=== PATIENT | male | born 1940 | race Caucasian/White ===

== ENCOUNTER 2023-10-06 19:04 | Emergency (ER) | payer MEDICARE, OTHER, SELFPAY ==
[2023-10-06] VITALS (25 sets, daily range): BP systolic 124–143; BP diastolic 64–94; PULSE 68–93; RESP 18; TEMP 36.3; O2SAT 94–100; BMI 21.8
--- NOTE | 2023-10-06 19:16 | CRLHL7_ITS ---
For Patients: As a result of the Century Cures Act, medical imaging exams and procedure reports are released immediately into your electronic medical record. You may view this report before your referring provider. If you have questions, please contact your health care provider. INDICATION: Fall, trauma. TECHNIQUE: CT head without contrast. COMPARISON: None. FINDINGS: CSF spaces: Within normal limits for age. Brain parenchyma and extra-axial spaces: The roque-white differentiation is normal. No sign of mass, hemorrhage, or midline shift. No extra-axial fluid collection. Skull base and calvarium: Right parietal scalp hematoma. The visualized paranasal sinuses and mastoid air cells demonstrate no acute or significant findings. The visualized orbits are grossly unremarkable. No skull fractures. IMPRESSION: Right parietal scalp hematoma. No acute intracranial abnormality. Please note that all CT scans at this facility use dose modulation, iterative reconstruction, and/or weight-based dosing when appropriate to reduce radiation dose to as low as reasonably achievable. Dictated by Neymar Muñoz MD @ 10/06/2023 9:10:18 PM (Electronically Signed)
--- NOTE | 2023-10-06 19:20 | ED_ITS ---
HPI - General Adult General Time Seen by Provider: 19:20 Date Seen: 10/06/23 Chief complaint: Fall/Minor Trauma Stated complaint: fall, lac on head Time Seen by Provider: 10/06/23 19:06 Source: patient and family Mode of arrival: EMS Limitations: no limitations History of Present Illness HPI narrative: Kendrick is an 83-year-old male past medical history includes CVA, hypertension not on any blood thinners presents emerged department via EMS after a syncopal episode and head injury. Patient states he was doing well all day, he went to [employer] this evening, he sings in the choir, he was sitting and standing for about 30 minutes, he was about to start his 2nd set of singing when he did remember what happened. He woke up with EMS around. Per family and people at [employer] no seizure-like activity. Patient states since he has been on lisinopril when he gets up to stand he sometimes gets lightheaded, never had a syncopal episode, patient did have dinner this evening, he has been eating and drinking normally, denies any head pain or neck pain, no visual disturbance, no diaphoresis, chest pain or shortness of breath, he has not had any nausea vomiting or abdominal pain. No history of any CAD. Patient has no pain at this time. Related Data Allergies Allergy/AdvReac Type Severity Reaction Status Date / Time Penicillins AdvReac Severe Anaphylaxis Verified 10/06/23 19:10 Review of Systems Status of ROS: Reports: 10 or more systems reviewed and unremarkable except as noted in History and below [facility] Medical History Health care directive on file ?Z78.9 - Other specified health status (ICD-10) Social History Smoking Status: Never smoker Do you use any of these nicotine containing products: None Non-prescribed substance use: denies use Exam Narrative: Exam Narrative: General: No obvious distress laying comfortably, HEENT: Pupils equal round reactive to light, extraocular muscles intact, 3 cm posterior right parietal horizontal laceration, surrounding ecchymosis mild swelling. Tympanic membranes within normal limits bilaterally Neck: Nontender to palpation cervical spine, full range of motion. Lungs: Clear to auscultation bilaterally Heart: Normal Sinus rhythm S1-S2 Abdomen: Soft, nontender, bowel sounds present Muscle skeletal: Back is atraumatic, nontender the thoracic to lumbar spine, internal external rotation hips normal bilaterally Is +5 strength upper lower extremities Neuro: He is alert awake and oriented x3 Const: Vital Signs, click to edit/add: Vital Signs - 24 hr 10/06/23 19:06 10/06/23 19:09 10/06/23 19:15 Temperature 97.3 F L Pulse Rate 69 71 Pulse Rate [orthos tatic lying] Pulse Rate [orthos tatic sitting] Pulse Rate [orthos tatic standing] Respiratory Rate 18 Blood Pressure Blood Pressure [Ri ght Upper Arm] 133/94 H Blood Pressure [or thostatic lying] Blood Pressure [or thostatic sitting] Blood Pressure [or thostatic standing ] Pulse Oximetry 99 98 94 Oxygen Delivery Me thod Room Air 10/06/23 19:30 10/06/23 19:31 10/06/23 19:45 Temperature Pulse Rate 69 68 75 Pulse Rate [orthos tatic lying] Pulse Rate [orthos tatic sitting] Pulse Rate [orthos tatic standing] Respiratory Rate Blood Pressure 132/70 Blood Pressure [Ri ght Upper Arm] Blood Pressure [or thostatic lying] Blood Pressure [or thostatic sitting] Blood Pressure [or thostatic standing ] Pulse Oximetry 98 97 100 Oxygen Delivery Me thod 10/06/23 20:00 10/06/23 20:02 10/06/23 20:15 Temperature Pulse Rate 72 80 Pulse Rate [orthos tatic lying] Pulse Rate [orthos tatic sitting] Pulse Rate [orthos tatic standing] Respiratory Rate Blood Pressure 129/64 Blood Pressure [Ri ght Upper Arm] Blood Pressure [or thostatic lying] Blood Pressure [or thostatic sitting] Blood Pressure [or thostatic standing ] Pulse Oximetry 98 97 Oxygen Delivery Me thod 10/06/23 20:30 10/06/23 20:31 10/06/23 20:45 Temperature Pulse Rate 78 88 82 Pulse Rate [orthos tatic lying] Pulse Rate [orthos tatic sitting] Pulse Rate [orthos tatic standing] Respiratory Rate Blood Pressure 127/66 Blood Pressure [Ri ght Upper Arm] Blood Pressure [or thostatic lying] Blood Pressure [or thostatic sitting] Blood Pressure [or thostatic standing ] Pulse Oximetry 99 97 96 Oxygen Delivery Me thod 10/06/23 20:48 10/06/23 20:49 10/06/23 20:52 Temperature Pulse Rate 73 78 Pulse Rate [orthos tatic lying] 79 Pulse Rate [orthos tatic sitting] 93 Pulse Rate [orthos tatic standing] 84 Respiratory Rate Blood Pressure 127/65 143/79 H Blood Pressure [Ri ght Upper Arm] Blood Pressure [or thostatic lying] 127/65 Blood Pressure [or thostatic sitting] 143/79 H Blood Pressure [or thostatic standing ] 142/84 H Pulse Oximetry 97 94 Oxygen Delivery Me thod 10/06/23 20:55 10/06/23 21:00 10/06/23 21:01 Temperature Pulse Rate 90 71 77 Pulse Rate [orthos tatic lying] Pulse Rate [orthos tatic sitting] Pulse Rate [orthos tatic standing] Respiratory Rate Blood Pressure 142/84 H 125/69 Blood Pressure [Ri ght Upper Arm] Blood Pressure [or thostatic lying] Blood Pressure [or thostatic sitting] Blood Pressure [or thostatic standing ] Pulse Oximetry 96 96 96 Oxygen Delivery Me thod 10/06/23 21:02 10/06/23 21:15 Temperature Pulse Rate 72 73 Pulse Rate [orthos tatic lying] Pulse Rate [orthos tatic sitting] Pulse Rate [orthos tatic standing] Respiratory Rate Blood Pressure Blood Pressure [Ri ght Upper Arm] Blood Pressure [or thostatic lying] Blood Pressure [or thostatic sitting] Blood Pressure [or thostatic standing ] Pulse Oximetry 95 96 Oxygen Delivery Me thod Course Course ED Course: 7:00 PM: AIDET performed, vitals are normal at this time, workup will include IV peripheral, 0.9 normal saline bolus, will obtain CT head without IV contrast, CBC, EKG, point of care troponin, lactate, CMP and magnesium, will also obtain orthostatic vital signs, seems more vasovagal episode. Similar to previous while being on his lisinopril. Patient and were in agreement, he has no pain at this time. Differential diagnosis include cardiac arrhythmia, acute blood loss a an intracranial bleed, other considerations are vasovagal syncope orthostatic syncope seizure as well as other etiologies. Reevaluation(s) Time of Reevaluation #1: 21:28 Reevaluation #1: IMAGING: IMPRESSION: Right parietal scalp hematoma. No acute intracranial abnormality. EKG showed a sinus rhythm with first-degree AV block, bpm 65, no acute ST changes, CBC showed mild leukocytosis 11.16, hemoglobin 11.6, platelets 109, neutrophil % 93, lactate within normal limits, magnesium within normal limits, patient was not orthostatic, CT head showed right parietal scalp hematoma, no acute intracranial abnormality. Metabolic panel showed mildly elevated glucose of 137, normal renal function and electrolyte, patient was monitored during his stay in the emergency department no at arrhythmias noted. He was ambulating with no difficulty, offered a Holter monitor patient declined at this time, patient has had symptoms like this while being on his lisinopril when he goes from sitting to standing, discussed taking his time to keep well hydrated follow-up with primary care provider over the next 7-10 days. Vital Signs Vital signs: Initial Vital Signs Temperature 97.3 F L 10/06/23 19:06 Temperature Source Temporal Artery Scan 10/06/23 19:06 Respiratory Rate 18 10/06/23 19:06 Blood Pressure 133/94 H 10/06/23 19:06 Blood Pressure Mean 107 H 10/06/23 19:06 Blood Pressure Position Sitting 10/06/23 19:06 Pulse Oximetry 99 10/06/23 19:06 Oxygen Delivery Method Room Air 10/06/23 19:06 Vital Signs Temperature 97.3 F L 10/06/23 19:06 Respiratory Rate 18 10/06/23 19:06 Blood Pressure 133/94 H 10/06/23 19:06 Pulse Oximetry 99 10/06/23 19:06 Oxygen Delivery Method Room Air 10/06/23 19:06 Temperature 97.3 F L 10/06/23 19:06 Pulse Rate 73 10/06/23 21:15 Respiratory Rate 18 10/06/23 19:06 Blood Pressure 125/69 10/06/23 21:01 Pulse Oximetry 96 10/06/23 21:15 Oxygen Delivery Method Room Air 10/06/23 19:06 Medications Administered Medications: Discontinued Medications Generic Name Dose Route Start Last Admin Trade Name Freq PRN Reason Stop Dose Admin Sodium Chloride 1,000 mls @ 1,000 mls/hr 10/06/23 19:19 10/06/23 19:47 0.9 % Sodium Chloride 1000 Ml IV 10/06/23 20:18 1,000 mls/hr .Q1H ROSCOE Administration Medical Decision Making Lab Data Labs: Lab Results 10/06/23 Range/Units 19:20 WBC 11.16 H (4.50-11.00) K/uL RBC 4.24 L (4.30-5.90) m/uL Hgb 11.6 L (13.5-17.5) gm/dL Hct 37.6 (37.0-53.0) % MCV 89 (80-100) fL MCH 27 (26-34) pg MCHC 31 L (32-36) gm/dL RDW Coeff of Michael 12.6 (11.5-15.5) % Plt Count 109 L (140-440) K/uL Neut % (Auto) 93.0 H (42.0-72.0) % Lymph % (Auto) 1.3 L (20-44) % Reeves % (Auto) 4.6 (0.0-11.0) % Eos % (Auto) 0.2 (0.0-7.0) % Baso % (Auto) 0.2 (0.0-3.0) % Neut # (Auto) 10.40 H (1.7-7.0) K/uL Lymph # (Auto) 0.10 L (0.90-2.90) K/uL Reeves # (Auto) 0.50 (0.00-0.90) K/UL Eos # (Auto) 0.00 (0.00-0.50) K/uL Baso # (Auto) 0.00 (0.00-0.30) K/uL Abs Immat Gran (auto) 0.10 (0.00-0.30) K/uL Imm/Tot Granulo (auto) 0.7 % Sodium 139 (135-149) mmol/L Potassium 4.6 (3.6-5.1) mmol/L Chloride 104 (96-114) mmol/L Carbon Dioxide 28 (20-32) mmol/L Anion Gap 7 (7-15) mEq/L BUN 20 (7-30) mg/dL Creatinine 1.0 (0.5-1.5) mg/dL Estimated Creat Clear 58.21 Estimated GFR 74 ml/min Glucose 137 H (60-115) mg/dL Lactate 1.0 (0.5-1.9) mmol/L Calcium 8.6 (8.4-10.6) mg/dL Magnesium 2.0 (1.5-2.6) mg/dL Total Bilirubin 0.8 (0.1-1.5) mg/dL AST 37 H (12-35) U/L ALT 31 (4-50) U/L Alkaline Phosphatase 85 (40-150) U/L Total Protein 7.1 (6.0-8.3) g/dL Albumin 4.4 (3.3-5.0) g/dL POC Troponin I 0.01 (0.01-0.04) ng/ml Discharge Plan Discharge Follow Up/Referrals: Refugio Lowe MD [Primary Care Provider] - Procedures Laceration Laceration 1: Pre procedure diagnosis: Scalp laceration Post procedure diagnosis: Scalp laceration Written consent by: patient Site marking: site marked Verification/time out: correct patient and correct site Site: scalp Description: stellate Local Anesthetic: lidocaine 1% and with epi Amount of anesthesia used (mL): 2 Pre-repair: wound explored Skin layer closed with: other (Isela) Number of sutures: 4 Conclusion: patient tolerated procedure
[2023-10-06 19:42] LABS: Troponin, Point-of-Care* 0.01 ng/ml (0.01-0.04)
[2023-10-06 19:44] LABS: Albumin* 4.4 g/dL (3.3-5.0); Chloride* 104 mmol/L (96-114); Sodium* 139 mmol/L (135-149)
[2023-10-06 19:45] LABS: Potassium* 4.6 mmol/L (3.6-5.1)
[2023-10-06 19:47] LABS: Alanine Aminotransferase* 31 U/L (4-50); Alkaline Phosphatase* 85 U/L (40-150); Anion Gap 7 mEq/L (7-15); Aspartate Amino Transferase* 37 U/L (12-35); Bilirubin Total* 0.8 mg/dL (0.1-1.5); Blood Urea Nitrogen* 20 mg/dL (7-30); Calcium* 8.6 mg/dL (8.4-10.6); Carbon Dioxide* 28 mmol/L (20-32); Est. Creatinine Clearance* 58.21; Estimated Glomerular Filt Rate 74 ml/min; Glucose* 137 mg/dL (60-115); Total Protein* 7.1 g/dL (6.0-8.3)
[2023-10-06] MEDS: 0.9 % SODIUM CHLORIDE 1000 ml 1,000 ML IV (19:47)
[2023-10-06 20:32] LABS: Basophils Percent Auto 0.2 % (0.0-3.0); Eosinophils Percent Auto 0.2 % (0.0-7.0); Hematocrit 37.6 % (37.0-53.0); Hemoglobin* 11.6 gm/dL (13.5-17.5); Immature Granulocytes Pct Auto 0.7 %; Lymphocytes Percent Auto 1.3 % (20-44); Mean Corpuscular HGB Conc 31 gm/dL (32-36); Mean Corpuscular Hemoglobin 27 pg (26-34); Mean Corpuscular Volume 89 fL (80-100); Monocytes Percent Auto 4.6 % (0.0-11.0); Platelet Count* 109 K/uL (140-440); RDW Coefficient of Variation % 12.6 % (11.5-15.5); Red Blood Count 4.24 m/uL (4.30-5.90); White Blood Count* 11.16 K/uL (4.50-11.00)
[2023-10-06 20:41] LABS: Slide Review Reflex No
== END 2023-10-06 22:08 | disposition home or self-care (01) ==
PROVIDERS: Emergency Provider Student in an Organized Health Care Education/Training Program; PCP Family Medicine
DX: S01.01XA Laceration without foreign body of scalp, initial encounter (principal); R55 Syncope and collapse
CPT/HCPCS: 12001; 36415; 70450; 80053; 83605; 83735; 84484; 85025; 93005; 94761; 99283; J7030